=== PATIENT | female | born 1945 | race African-American/Black ===

== ENCOUNTER 2025-06-05 06:09 | Emergency (ER) | payer OTHER ==
[~2025-06-05] VITALS: Ht 172.7 cm; Wt 77.0 kg
[2025-06-05 06:15] VITALS: O2SAT 99
[2025-06-05 07:35] LABS: BASOPHILS % 0.7 % (0.0-2.0); EOSINOPHILS % 2.8 % (0.0-5.0); HEMATOCRIT. 33.8 % (36.0-48.0); HEMOGLOBIN. 11.0 g/dL (12.0-16.0); LYMPHOCYTES % 27.4 % (20.0-50.0); MEAN PLATELET VOLUME 7.7 fl (7.4-10.4); MONOCYTES % 11.1 % (2.0-8.0); NEUTROPHILS % 58.0 % (40.0-76.0); PLATELET 314 x1000/uL (130-400); RED BLOOD CELL COUNT 3.69 mill/uL (4.2-5.4); RED CELL DISTRIBUTION WIDTH 14.8 % (11.6-14.6)
[2025-06-05 07:50] LABS: CREATININE 1.6 mg/dL (0.6-1.0); UREA NITROGEN BLOOD 24 mg/dL (9-23)
[2025-06-05 07:51] LABS: TROPONIN I HIGH SENSITIVITY 9 ng/L (3.0-34)
[2025-06-05] MEDS: MECLIZINE 25MG TABLET PO ONE (08:10)
[2025-06-05] MEDS: SODIUM CHLORIDE 0.9% 1,000 ML IV ONE (08:10)
[2025-06-05] MEDS: ONDANSETRON HCL 4MG/2ML INJ IV ONE (08:10)
[2025-06-05 08:40] LABS: CLARITY URINE CLEAR (CLEAR); COLOR URINE YELLOW (YELLOW); GLUCOSE URINE NEGATIVE (NEGATIVE); KETONES URINE NEGATIVE (NEGATIVE); LEUKOCYTE ESTERASE URINE NEGATIVE (NEGATIVE); NITRITE URINE NEGATIVE (NEGATIVE); OCCULT BLOOD URINE NEGATIVE (NEGATIVE); PH URINE 7.5 (4.5-8.0); PROTEIN URINE NEGATIVE (NEGATIVE); SPECIFIC GRAVITY URINE 1.010 (1.005-1.030); UROBILINOGEN URINE 0.2 E.U./dL (0.2-1.0)
[2025-06-05] MEDS: HYDRALAZINE 20MG/ML VIAL IV ONE (11:33)
[2025-06-05 12:21] VITALS: BP 166/64; PULSE 68; RESP 16; TEMP 36.7; O2SAT 100
== END 2025-06-05 12:30 | disposition short-term general hospital (02) ==
LOC: ER 06:09 → CANBEDREQ 13:29
DX: R42 Dizziness and giddiness (principal); I10 Essential (primary) hypertension; Z79.899 Other long term (current) drug therapy
CPT/HCPCS: 99285; 96374; 96361; 70450; 71045; 96375; 80048; 81003; 85025; 84484; 36415; 93005; J8597; J0360; J2405; J7030

== ENCOUNTER 2025-09-10 17:54 | Emergency (ER) | payer OTHER ==
[~2025-09-10] VITALS: Ht 160 cm; Wt 60.0 kg
[2025-09-10 17:57] VITALS: O2SAT 95
[2025-09-10 18:42] LABS: BASOPHILS % 0.4 % (0.0-2.0); EOSINOPHILS % 0.9 % (0.0-5.0); HEMATOCRIT. 38.9 % (36.0-48.0); HEMOGLOBIN. 12.7 g/dL (12.0-16.0); LYMPHOCYTES % 12.0 % (20.0-50.0); MEAN PLATELET VOLUME 7.8 fl (7.4-10.4); MONOCYTES % 9.2 % (2.0-8.0); NEUTROPHILS % 77.5 % (40.0-76.0); PLATELET 406 x1000/uL (130-400); RED BLOOD CELL COUNT 4.30 mill/uL (4.2-5.4); RED CELL DISTRIBUTION WIDTH 15.6 % (11.6-14.6)
[2025-09-10 18:52] LABS: INR 1.1
[2025-09-10 18:57] LABS: UREA NITROGEN BLOOD 58 mg/dL (9-23)
[2025-09-10 18:58] LABS: CREATININE 2.8 mg/dL (0.6-1.0); PROTEIN TOTAL 7.5 g/dL (6.0-8.3)
[2025-09-10 18:59] LABS: ASPARTATE AMINOTRANSFERASE 77 IU/L (<34); BILIRUBIN DIRECT 0.2 mg/dL (<=3.0); BILIRUBIN TOTAL 0.6 mg/dL (0.1-1.0)
[2025-09-10] MEDS: SODIUM CHLORIDE 0.9% 1,000 ML IV ONE (21:45)
[2025-09-10] MEDS ORDERED: CLONIDINE 0.1MG TABLET PO PRN (23:00)
[2025-09-10] MEDS ORDERED: NALOXONE HCL 0.4MG/ML VIAL IV PRN (23:00)
[2025-09-10] MEDS ORDERED: ACETAMINOPHEN 325MG TABLET PO PRN (23:00)
[2025-09-10] MEDS ORDERED: SODIUM CHLORIDE 0.9% 1,000 ML IV SCH (23:00)
[2025-09-10] MEDS ORDERED: MAGNESIUM/ALUMINUM HYDROXIDE/SIMETHICONE 30ML UDC PO PRN (23:00)
[2025-09-10] MEDS ORDERED: ZOLPIDEM TARTRATE 5MG TABLET PO PRN (23:00)
[2025-09-10] MEDS ORDERED: HYDROCODONE/ACETAMINOPHEN 5/325MG TABLET PO PRN (23:00)
[2025-09-10] MEDS ORDERED: ONDANSETRON HCL 4MG/2ML INJ IV PRN (23:00)
[2025-09-11 00:33] VITALS: BP 106/96; PULSE 99; RESP 18; TEMP 36.7; O2SAT 99
[2025-09-11] MEDS ORDERED: PANTOPRAZOLE SODIUM 40 MG/VIAL IV SCH (09:00)
[2025-09-11] MEDS ORDERED: ENOXAPARIN 30MG/0.3ML SYR SUBCUT SCH (09:00)
== END 2025-09-11 01:02 | disposition short-term general hospital (02) ==
LOC: ER 17:54 → EDBEDREQTM 22:01 → EDBEDREQ 22:01 → ER 09-11 01:02 → CMPBEDREQ 09-11 01:09
DX: N17.9 Acute kidney failure, unspecified (principal); R62.7 Adult failure to thrive; I10 Essential (primary) hypertension; R51.9 Headache, unspecified; Z79.899 Other long term (current) drug therapy
CPT/HCPCS: 99285; 70450; 96360; 80076; 80048; 82550; 83690; 83735; 85025; 85610; 36415; 71250; 74176; J7030